=== PATIENT | male | born 1965 | race Caucasian/White ===

== ENCOUNTER → 2024-09-17 14:21 | Outpatient (REF) | payer OTHER, SELFPAY | LOC: HWRAD 14:21 | PROVIDERS: ATTENDING PHYSICIAN Nurse Practitioner; FAMILY PHYSICIAN Family Medicine | DX: F07.81 Postconcussional syndrome (principal) | CPT/HCPCS: 70450 ==

== ENCOUNTER → 2025-03-20 12:21 | Outpatient (REF) | payer OTHER, SELFPAY | LOC: RAD 12:21 | PROVIDERS: ATTENDING PHYSICIAN Family Medicine | DX: M54.2 Cervicalgia (principal) | CPT/HCPCS: 70491; 71260; Q9967 ==

== ENCOUNTER 2025-05-19 06:19 | Day surgery (SDC) | payer OTHER, SELFPAY ==
[2025-05-05 11:00] LABS: Hematocrit 42.4 % (39.0-52.0); Hemoglobin 14.5 g/dL (13.0-18.0); Mean Corp Hgb Conc. 34.2 g/dL (33.0-37.0); Mean Corpuscular Volume 85.3 fL (80.0-94.0); Platelet Count 257 10^3/uL (130-400); Red Cell Dist. Width 12.5 % (11.5-14.5)
[2025-05-05 11:28] LABS: ALT (SGPT) 26 U/L (0-50); AST (SGOT) 23 U/L (17-59); Albumin 4.6 g/dl (3.5-5.0); Alkaline Phosphatase 49 U/L (38-126); Blood Urea Nitrogen 15 mg/dl (9-20); Calcium 9.6 mg/dl (8.4-10.2); Carbon Dioxide 26 mmol/L (22-30); Chloride 103 mmol/L (98-107); Glucose 105 mg/dl (70-99); INR 0.95; PT 13.0 Sec (11.4-14.6); Potassium 4.4 mmol/L (3.5-5.1); Sodium 137 mmol/L (135-145); Total Protein 7.5 g/dl (6.3-8.2); eGFR > 60.00
[2025-05-05 11:29] LABS: APTT 27.0 Sec (23.4-35.0)
[2025-05-05 14:17] VITALS: BMI 29.0
[2025-05-19] VITALS (8 sets, daily range): BP systolic 135–155; BP diastolic 78–89; BMI 29.0
[2025-05-19] MEDS: NORMOSOL-R/PLASMALYTE-A 1000 IV (09:40)
[2025-05-19] MEDS: TYLENOL 1000 MG PO (09:41)
[2025-05-19] MEDS: NEURONTIN 300 MG PO (09:41)
[2025-05-19] MEDS: HEPARIN 5000 UNITS SC (09:42)
--- NOTE | 2025-05-19 12:13 | OR.RPT ---
Operative Report
Operative Report
DATE OF OPERATION: May 19, 2025
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
POSTOPERATIVE DIAGNOSIS: Same
SURGEON: David Graves M.D.
OPERATION: Resection of the right substernal goiter - [id number]
ANESTHESIA: GET
ESTIMATED BLOOD LOSS: 3 cc
DRAINS: None
SPECIMEN: right total thyroid lobe and isthmus
FINDINGS: Right substernal goiter
COMPLICATIONS: None
PROCEDURE:
The patient was taken to the operating room and placed in the usual supine position. After adequate general endotracheal anesthesia was established, the patient�s neck was extended, prepped, and draped in the typical sterile fashion. A 5 cm
transcervical incision was made two fingerbreadths above the sternal notch. The skin incision was made with the #15 blade, which was taken through the skin into the subcutaneous tissue. The underlying platysma muscle was divided, and subplatysmal
flaps were created superiorly to the thyroid cartilage and inferiorly to the sternal notch. Strap muscles were identified and at the midline.
Attention was turned to the patient�s right thyroid lobe. The right thyroid lobe was mobilized medially. During this process, the right middle thyroid vein and inferior thyroid artery were dissected and ligated with Ligasure. There was a significant
substernal extension, which was delivered out of the mediastinum through the cervical incision. Next, the right superior pole was taken down by dissecting and transecting the superior pole vessels with a Ligasure. The right thyroid lobe was
mobilized medially. During this process, the right recurrent laryngeal nerve was identified and preserved throughout its entire course. The right inferior parathyroid gland was identified and preserved. The right thyroid lobe with isthmus was
resected from the trachea and sent to the pathology department.
After achieving adequate hemostasis, the strap muscle was approximated with #3-0 Vicryl in a running fashion, and the platysma muscles were reapproximated with #3-0 Vicryl in an interrupted manner. The skin was then closed with #4-0 Monocryl in a
running subcuticular technique. Steri-strips and sterile dressings were applied. The patient tolerated the procedure well. The final instrument, needle, and sponge counts were correct.
[2025-05-19] MEDS: DILAUDID 0.5 MG IV (12:41)
== END 2025-05-19 14:15 | disposition home or self-care (01) ==
LOC: SDS 06:19
PROVIDERS: ATTENDING PHYSICIAN Surgery; FAMILY PHYSICIAN Family Medicine
DX: D34 Benign neoplasm of thyroid gland (principal); E06.3 Autoimmune thyroiditis; E04.9 Nontoxic goiter, unspecified
CPT/HCPCS: 60271; 36415; 80053; 85027; 85610; 85730; 86850; 86900; 86901; 88307; 93005